=== PATIENT | male | born 1950 | race Caucasian/White ===

== ENCOUNTER 2017-05-28 16:10 | Observation (INO) | payer BC ==
[2017-05-28] VITALS (9 sets, daily range): BP systolic 151–246; BP diastolic 69–130; PULSE 79–96; RESP 16–24; TEMP 97.8; O2SAT 98–100
[~2017-05-28] VITALS: Ht 182.9 cm; Wt 150.0 kg
[~2017-05-28 16:10] MED LIST: CARV3.125 PO; COZA25TA PO; GLYB2.5T3 PO; LIPI20TA PO; METF500T PO
[2017-05-28] MEDS ORDERED: hydrALAZINE HCL 20 MG/ML VIAL IV PUSH ONE (18:45)
--- NOTE | 2017-05-28 18:56 | PD ---
HPI Chief Complaint: Abnormal Results Time Seen by Provider: 18:31 Travel History International Travel<30 days: No Contact w/Intl Traveler<30days: No Traveled to known affect area: No History of Present Illness HPI 66yo M with PMH of DM, HTN was sent here after being evaluated at [address] for abnormal EKG. Pt denies any fever, chest pain, sob, n/v, abdominal pain, focal weakness or numbness, headache or visual changes. Pt has not taken blood pressure medication or diabetic medication for at least 4 months because of insurance issues. PFSH Past Medical History High Cholesterol: Yes Diabetes: Yes Patient Takes Glucophage: Yes Hypertension: Yes Tetanus Vaccination: > 5 Years Influenza Vaccination: No Past Surgical History Surgical History: No Previous Surgery Social History Alcohol Use: Yes (OCCAS) Tobacco Use: No Substance Use: No Allergies-Medications (Allergen,Severity, Reaction): Coded Allergies: No Known Allergies (Unverified , 05/28/17) Reported Meds & Prescriptions Reported Meds & Active Scripts Active Glyburide 2.5 Mg Tab 2.5 Mg PO DAILY Take with meals at the same time each day Coreg (Carvedilol) 3.125 Mg Tab 3.125 Mg PO BID Cozaar (Losartan Potassium) 25 Mg Tab 25 Mg PO DAILY Lipitor (Atorvastatin Calcium) 20 Mg Tab 20 Mg PO HS Metformin (Metformin HCl) 500 Mg Tab 500 Mg PO TIDPC With meals Review of Systems Except as stated in HPI: all other systems reviewed are Neg Physical Exam Narrative GENERAL: 66yo M not in distress. SKIN: Focused skin assessment warm/dry. HEAD: Atraumatic. Normocephalic. EYES: Pupils equal and round. No scleral icterus. No injection or drainage. ENT: No nasal bleeding or discharge. Mucous membranes pink and moist. NECK: Trachea midline. No JVD. CARDIOVASCULAR: Regular rate and rhythm. No murmur appreciated. RESPIRATORY: No accessory muscle use. Clear to auscultation. Breath sounds equal bilaterally. GASTROINTESTINAL: Abdomen soft, non-tender, nondistended. No rebound tenderness or guarding. MUSCULOSKELETAL: No obvious deformities. No clubbing. No cyanosis. +Bilateral lower ext edema. NEUROLOGICAL: Awake and alert. No obvious cranial nerve deficits. Motor grossly within normal limits. Normal speech. PSYCHIATRIC: Appropriate mood and affect; insight and judgment normal. Data Data Last Documented VS Vital Signs Date Time Temp Pulse Resp B/P Pulse Ox O2 Delivery O2 Flow Rate FiO2 05/28/17 20:45 85 16 187/100 99 Room Air 05/28/17 16:11 97.8 Orders Electrocardiogram (05/28/17 ) Chest, Single Ap (05/28/17 ) Complete Blood Count With Diff (05/28/17 18:41) Basic Metabolic Panel (Bmp) (05/28/17 18:41) Troponin I (05/28/17 18:41) Hydralazine Inj (Apresoline Inj) (05/28/17 18:45) Aspirin (Aspirin) (05/28/17 21:00) Admit Order (Ed Use Only) (05/28/17 21:03) Labs Laboratory Tests Test 05/28/17 18:45 White Blood Count 7.4 TH/MM3 Red Blood Count 5.15 MIL/MM3 Hemoglobin 16.7 GM/DL Hematocrit 48.4 % Mean Corpuscular Volume 94.0 FL Mean Corpuscular Hemoglobin 32.4 PG Mean Corpuscular Hemoglobin 34.5 % Concent Red Cell Distribution Width 13.9 % Platelet Count 125 TH/MM3 Mean Platelet Volume 11.5 FL Neutrophils (%) (Auto) 65.9 % Lymphocytes (%) (Auto) 25.9 % Monocytes (%) (Auto) 7.2 % Eosinophils (%) (Auto) 0.3 % Basophils (%) (Auto) 0.7 % Neutrophils # (Auto) 4.8 TH/MM3 Lymphocytes # (Auto) 1.9 TH/MM3 Monocytes # (Auto) 0.5 TH/MM3 Eosinophils # (Auto) 0.0 TH/MM3 Basophils # (Auto) 0.0 TH/MM3 CBC Comment DIFF FINAL Differential Comment Sodium Level 136 MEQ/L Potassium Level 3.7 MEQ/L Chloride Level 98 MEQ/L Carbon Dioxide Level 25.9 MEQ/L Anion Gap 12 MEQ/L Blood Urea Nitrogen 12 MG/DL Creatinine 1.00 MG/DL Estimat Glomerular Filtration 75 ML/MIN Rate Random Glucose 302 MG/DL Calcium Level 8.7 MG/DL Troponin I 0.06 NG/ML MDM Medical Decision Making Medical Screen Exam Complete: Yes Emergency Medical Condition: Yes Interpretation(s) EKG: NSR 75bpm. RBBB. TWI V3, III, aVF. Differential Diagnosis Hypertensive emergency vs. end organ damage vs. uncontrolled diabetes Narrative Course 66yo M with left scapula pain and RBBB on EKG sent here for work up of possible atypical ACS. Pt's blood pressure was markedly elevated so hydralazine 10mg IV given. Pt seen at the end of my shift and sign out to next physician for follow up labs, CXR and reevaluate. Diagnosis Primary Impression: Hypertensive urgency Scripts Aspirin 81 Mg Chew81 Mg CHEW DAILY #30 TAB Ref 0 Prov:Jerald Hsu MD R2 05/29/17 Ania Hsu DO May 28, 2017 18:56 Ania Hsu DO May 28, 2017 18:56
--- NOTE | 2017-05-28 19:24 | RADRPT ---
EXAM DATE/TIME: 05/28/2017 18:56 [facility] COMPARISON: No previous studies available for comparison. INDICATIONS : Left shoulder pain MEDICAL HISTORY : Hypertension. Diabetes mellitus type II. SURGICAL HISTORY : None. ENCOUNTER: Initial ACUITY: 1 day PAIN SCORE: 6/10 LOCATION: Left scapula FINDINGS: Cardiomegaly. Clear lungs. Osseous structures are intact. CONCLUSION: No acute disease. Nj Hansen MD on May 28, 2017 at 19:22 Board Certified Radiologist. This report was verified electronically.
[2017-05-28 19:36] LABS: AUTOMATED NEUTROPHIL # 4.8 TH/MM3 (1.8-7.7); BASOPHIL % 0.7 % (0.0-2.0); EOSINOPHIL % 0.3 % (0.0-4.0); HEMATOCRIT 48.4 % (39.0-51.0); HEMO FLAGS DIFF FINAL; LYMPH % 25.9 % (9.0-44.0); LYMPHOCYTE # 1.9 TH/MM3 (1.0-4.8); MEAN CORPUSCULAR HEMOGLOBIN 32.4 PG (27.0-34.0); MEAN CORPUSCULAR HGB CONC 34.5 % (32.0-36.0); MONO % 7.2 % (0.0-8.0); NEUT % 65.9 % (16.0-70.0); PLATELET COUNT 125 TH/MM3 (150-450); RED BLOOD COUNT 5.15 MIL/MM3 (4.50-5.90); RED CELL DISTRIBUTION WIDTH 13.9 % (11.6-17.2); WHITE BLOOD COUNT 7.4 TH/MM3 (4.0-11.0)
[2017-05-28 19:39] LABS: BICARBONATE 25.9 MEQ/L (21.0-32.0); POTASSIUM 3.7 MEQ/L (3.5-5.1)
--- NOTE | 2017-05-28 20:52 | PD ---
Physical Exam Date Seen by Provider: May 28, 2017 Data Data Last Documented VS Vital Signs Date Time Temp Pulse Resp B/P Pulse Ox O2 Delivery O2 Flow Rate FiO2 05/28/17 20:45 85 16 187/100 99 Room Air 05/28/17 16:11 97.8 Orders Electrocardiogram (05/28/17 ) Chest, Single Ap (05/28/17 ) Complete Blood Count With Diff (05/28/17 18:41) Basic Metabolic Panel (Bmp) (05/28/17 18:41) Troponin I (05/28/17 18:41) Hydralazine Inj (Apresoline Inj) (05/28/17 18:45) Aspirin (Aspirin) (05/28/17 21:00) Labs Laboratory Tests Test 05/28/17 18:45 White Blood Count 7.4 TH/MM3 Red Blood Count 5.15 MIL/MM3 Hemoglobin 16.7 GM/DL Hematocrit 48.4 % Mean Corpuscular Volume 94.0 FL Mean Corpuscular Hemoglobin 32.4 PG Mean Corpuscular Hemoglobin 34.5 % Concent Red Cell Distribution Width 13.9 % Platelet Count 125 TH/MM3 Mean Platelet Volume 11.5 FL Neutrophils (%) (Auto) 65.9 % Lymphocytes (%) (Auto) 25.9 % Monocytes (%) (Auto) 7.2 % Eosinophils (%) (Auto) 0.3 % Basophils (%) (Auto) 0.7 % Neutrophils # (Auto) 4.8 TH/MM3 Lymphocytes # (Auto) 1.9 TH/MM3 Monocytes # (Auto) 0.5 TH/MM3 Eosinophils # (Auto) 0.0 TH/MM3 Basophils # (Auto) 0.0 TH/MM3 CBC Comment DIFF FINAL Differential Comment Sodium Level 136 MEQ/L Potassium Level 3.7 MEQ/L Chloride Level 98 MEQ/L Carbon Dioxide Level 25.9 MEQ/L Anion Gap 12 MEQ/L Blood Urea Nitrogen 12 MG/DL Creatinine 1.00 MG/DL Estimat Glomerular Filtration 75 ML/MIN Rate Random Glucose 302 MG/DL Calcium Level 8.7 MG/DL Troponin I 0.06 NG/ML [facility] Medical Record Reviewed: Yes Supervised Visit with ROGELIO: No Interpretation(s) Vital Signs Date Time Temp Pulse Resp B/P Pulse Ox O2 Delivery O2 Flow Rate FiO2 05/28/17 20:15 96 16 191/103 99 Room Air 05/28/17 19:45 81 16 197/97 99 Room Air 05/28/17 19:20 79 16 201/95 99 Room Air 05/28/17 18:37 82 18 224/118 100 Room Air 05/28/17 18:31 84 18 97 Room Air 05/28/17 16:11 97.8 84 24 246/130 98 Room Air Laboratory Tests Test 05/28/17 18:45 White Blood Count 7.4 TH/MM3 (4.0-11.0) Red Blood Count 5.15 MIL/MM3 (4.50-5.90) Hemoglobin 16.7 GM/DL (13.0-17.0) Hematocrit 48.4 % (39.0-51.0) Mean Corpuscular Volume 94.0 FL (80.0-100.0) Mean Corpuscular Hemoglobin 32.4 PG (27.0-34.0) Mean Corpuscular Hemoglobin 34.5 % Concent (32.0-36.0) Red Cell Distribution Width 13.9 % (11.6-17.2) Platelet Count 125 TH/MM3 (150-450) Mean Platelet Volume 11.5 FL (7.0-11.0) Neutrophils (%) (Auto) 65.9 % (16.0-70.0) Lymphocytes (%) (Auto) 25.9 % (9.0-44.0) Monocytes (%) (Auto) 7.2 % (0.0-8.0) Eosinophils (%) (Auto) 0.3 % (0.0-4.0) Basophils (%) (Auto) 0.7 % (0.0-2.0) Neutrophils # (Auto) 4.8 TH/MM3 (1.8-7.7) Lymphocytes # (Auto) 1.9 TH/MM3 (1.0-4.8) Monocytes # (Auto) 0.5 TH/MM3 (0-0.9) Eosinophils # (Auto) 0.0 TH/MM3 (0-0.4) Basophils # (Auto) 0.0 TH/MM3 (0-0.2) CBC Comment DIFF FINAL Differential Comment Sodium Level 136 MEQ/L (136-145) Potassium Level 3.7 MEQ/L (3.5-5.1) Chloride Level 98 MEQ/L (98-107) Carbon Dioxide Level 25.9 MEQ/L (21.0-32.0) Anion Gap 12 MEQ/L (5-15) Blood Urea Nitrogen 12 MG/DL (7-18) Creatinine 1.00 MG/DL (0.60-1.30) Estimat Glomerular Filtration 75 ML/MIN (>89) Rate Random Glucose 302 MG/DL (74-106) Calcium Level 8.7 MG/DL (8.5-10.1) Troponin I 0.06 NG/ML (0.02-0.05) Differential Diagnosis Differential includes accelerated hypertension, hyperglycemia, ACS, arrhythmia, electrolyte abnormality Narrative Course Patient signed out to me by Dr. Hsu and change of shift. Patient pending Lab work Patient is a 66-year-old male who was sent to the emergency room by Dr. Hsu for evaluation of accelerated hypertension and abnormal EKG. Patient reports that he recently moved to [place] in August, reports that he has not been able to fill any of his scripts for his hypertension, hyperlipidemia and diabetes. Patient reports that for the past 4-5 months, he has not taken any of his medications for these chronic medical problems. Patient did follow-up with Dr. Hsu today, he was restarted in all his medications but was found to have high blood pressure with a blood pressure of 224/118 and an abnormal EKG with a right bundle branch block. Patient reports that he did not take his blood pressure medications today, reports that his medications are waiting at [facility] for refill. Patient at this time. Denies any headaches or chest pain, denies lightheadedness or dizziness. Patient's blood pressure was 224/118 initially, he was given 10 mg of IV hydralazine and blood pressure now 183/93. Labs reviewed, patient with a troponin 0.06. Patient does have a right bundle-branch block on EKG, there are no previous EKGs. Plan to admit for abnormal troponin as well as for hypertensive urgency. Elevated troponin most likely from hypertensive urgency. Case reviewed with FP residents who accepts patient to observation on behalf of Dr. Pfeiffer Diagnosis Primary Impression: Troponin level elevated Additional Impression: Hypertensive urgency Admitting Information Admitting Physician Requests: Observation Lea Guerra DO May 28, 2017 20:52
[2017-05-28] MEDS ORDERED: ASPIRIN 325 MG TAB PO ONE (21:00)
--- NOTE | 2017-05-28 21:55 | HHI.HP ---
[facility] Service Family Medicine Primary Care Physician Jerald Hsu MD Admission Diagnosis Elevated troponin, Hypertensive urgnecy Diagnoses: International Travel<30 Days: No Contact w/Intl Traveler<30days: No Known Affected Area: No History of Present Illness 66 year old male presented to the [facility] today to establish care with new physician, Dr. Jarrod Hsu. He has a history of hypertension, obesity , hyperlipidemia, and diabetes type II. He He had some intermittent left back/ scapular pain for the past 4 weeks that is non-exertional. He was sent to the ER by Dr. Hsu for hypertensive urgency and RBBB seen on EKG. His blood pressure upon arrival to the ER is 246/130. He has no headaches, shortness of breath, chest pain, abdominal pain, nausea, vomiting, diarrhea, diaphoresis, new edema, blurry vision, or neurological deficits. He states that he feels completely asymptomatic at the time. He was on metformin, Cozaar, Lipitor, Coreg , and glyburide but has not taken them for the last few months due to insurance problems. Specifically, he moved here from [place] and had a lapse in coverage for a period of time. He now has insurance coverage in [place]. He does not know his last A1C and reports no significant complications from diabetes. Review of Systems Constitutional: DENIES: Fatigue, Fever, Weight gain, Weight loss, Chills, Change in appetite Endocrine: DENIES: Polydipsia, Polyuria, Polyphagia Eyes: DENIES: Blurred vision, Eye pain, Double Vision Ears, nose, mouth, throat: DENIES: Throat pain, Ear Pain Respiratory: DENIES: Cough, Wheezing, Sputum production, Shortness of breath Cardiovascular: DENIES: Chest pain, Palpitations, Syncope, Dyspnea on Exertion , Lower Extremity Edema, Orthopnea Gastrointestinal: DENIES: Abdominal pain, Black stools, Bloody stools, Constipation, Diarrhea, Nausea, Vomiting Genitourinary: DENIES: Urinary frequency, Urgency, Hematuria, Dysuria, Nocturia Musculoskeletal: DENIES: Muscle aches, Joint Swelling, Neck pain Integumentary: DENIES: Abnormal pigmentation, Nail changes, Rash Hematologic/lymphatic: DENIES: Lymphadenopathy Immunologic/allergic: DENIES: Urticaria Neurologic: DENIES: Abnormal gait, Headache, Localized weakness, Paresthesias, Seizures, Tremor, Poor Balance Psychiatric: DENIES: Anxiety, Depression, Hallucinations, Agitation Past Family Social History Past Medical History Diabetes type II Hypertension Hyperlipidemia Obesity Past Surgical History None Reported Medications Reported Meds & Active Scripts Active Glyburide 2.5 Mg Tab 2.5 Mg PO DAILY Take with meals at the same time each day Coreg (Carvedilol) 3.125 Mg Tab 3.125 Mg PO BID Cozaar (Losartan Potassium) 25 Mg Tab 25 Mg PO DAILY Lipitor (Atorvastatin Calcium) 20 Mg Tab 20 Mg PO HS Metformin (Metformin HCl) 500 Mg Tab 500 Mg PO TIDPC With meals Allergies: Coded Allergies: No Known Allergies (Unverified , 05/28/17) Active Ordered Medications Inpatient Medications Aspirin (Aspirin) 325 mg ONCE ONCE PO Last administered on 05/28/17 21:01; Start 05/28/17 at 21:00; Stop 05/28/17 at 21:01; Status DC Atorvastatin Calcium (Lipitor) 20 mg HS PO ; Start 05/29/17 at 21:00 Carvedilol (Coreg) 3.125 mg BID PO ; Start 05/29/17 at 09:00 Enoxaparin Sodium (Lovenox Inj) 40 mg Q24H SQ ; Start 05/28/17 at 23:00 Hydralazine HCl (Apresoline Inj) 10 mg Q6H PRN IV SEE LABEL COMMENTS Last administered on 05/28/17 22:21; Start 05/28/17 at 22:15 Losartan Potassium (Cozaar) 25 mg DAILY PO ; Start 05/29/17 at 09:00 Family History Father: age 72 of [place], was obese, stroke Mother: age 54, cancer unspecified Siblings: one sister, cancer unspecified 2 daughters and one son, healthy Social History never smoker drinks 3 to 4 beers per day, no history of withdrawals or seizures no drug use lives with 5 children grown Physical Exam Vital Signs Vital Signs Date Time Temp Pulse Resp B/P Pulse Ox O2 Delivery O2 Flow Rate FiO2 05/28/17 20:45 85 16 187/100 99 Room Air 05/28/17 20:15 96 16 191/103 99 Room Air 05/28/17 19:45 81 16 197/97 99 Room Air 05/28/17 19:20 79 16 201/95 99 Room Air 05/28/17 18:37 82 18 224/118 100 Room Air 05/28/17 18:31 84 18 97 Room Air 05/28/17 16:11 97.8 84 24 246/130 98 Room Air Physical Exam GENERAL: Resting in bed, no distress, sitting up SKIN: Clear, no rashes, chronic venous dermatitis in lower extremities HEAD: Atraumatic. Normocephalic. No temporal or scalp tenderness. EYES: Pupils equal round and reactive. Extraocular motions intact. No scleral icterus. No injection or drainage. Retinal arteries appear normal. ENT: Nose without bleeding, purulent drainage or septal hematoma. Throat without erythema, tonsillar hypertrophy or exudate. Uvula midline. Airway patent. NECK: Trachea midline. No JVD or lymphadenopathy. Supple, nontender, no meningeal signs. CARDIOVASCULAR: Regular rate and rhythm without murmurs, gallops, or rubs. RESPIRATORY: Clear to auscultation. Breath sounds equal bilaterally. No wheezes , rales, or rhonchi. GASTROINTESTINAL: Abdomen soft, non-tender, nondistended. No hepato-splenomegaly , or palpable masses. No guarding. MUSCULOSKELETAL: Trace pedal edema. No joint tenderness, effusion, or edema noted. No calf tenderness. Negative Homans sign bilaterally. NEUROLOGICAL: Awake and alert. Cranial nerves II through XII intact. Motor and sensory grossly within normal limits. Five out of 5 muscle strength in all muscle groups. Normal speech. Laboratory Laboratory Tests Test 05/28/17 18:45 White Blood Count 7.4 Red Blood Count 5.15 Hemoglobin 16.7 Hematocrit 48.4 Mean Corpuscular Volume 94.0 Mean Corpuscular Hemoglobin 32.4 Mean Corpuscular Hemoglobin 34.5 Concent Red Cell Distribution Width 13.9 Platelet Count 125 Mean Platelet Volume 11.5 Neutrophils (%) (Auto) 65.9 Lymphocytes (%) (Auto) 25.9 Monocytes (%) (Auto) 7.2 Eosinophils (%) (Auto) 0.3 Basophils (%) (Auto) 0.7 Neutrophils # (Auto) 4.8 Lymphocytes # (Auto) 1.9 Monocytes # (Auto) 0.5 Eosinophils # (Auto) 0.0 Basophils # (Auto) 0.0 CBC Comment DIFF FINAL Differential Comment Sodium Level 136 Potassium Level 3.7 Chloride Level 98 Carbon Dioxide Level 25.9 Anion Gap 12 Blood Urea Nitrogen 12 Creatinine 1.00 Estimat Glomerular Filtration 75 Rate Random Glucose 302 Calcium Level 8.7 Troponin I 0.06 Result Diagram: 05/28/17 1845 05/28/17 1845 Imaging Last 72 hours Impressions Chest X-Ray 05/28/17 0000 Signed Impressions: Service Date/Time: May 18:56 - CONCLUSION: No acute disease. Nj Hansen MD Septic Shock Reassessment Heart: Regular rate and rhythm Lungs: Clear Skin: Warm Capillary Refill: <2 seconds Assessment and Plan Assessment and Plan 66 year old male presents with hypertensive urgency and new RBBB Code Status FULL CODE Discussed Condition With Seen and discussed with Dr. Montiel Problem List: (1) Hypertensive urgency Status: Acute Plan: Significantly elevated blood pressure up to 246/130. BP 180's/100's while in room. Creatinine 1.0, GFR slightly decreased to 75. Troponin elevated to 0.06 initially. RBBB on EKG. Neurological exam benign. - Hydralazine 10 mg IV given twice in ED. - Give clonidine PO for blood pressure >180/100 - Resume Coreg 3.125 bid - Resume Losartan 25 mg daily - Trend Troponins and EKG's - Target 25-30% reduction in blood pressure, avoid rapid correction - Rest in quiet room as much as possible - Renal ultrasound to rule out renovascular disease - Check TSH to rule out hyperthyroidism - Could consider further workup for secondary hypertension if not controlled (2) Troponin level elevated Status: Acute Plan: Most likely secondary to elevated blood pressures. No active chest pain currently. No distress. - Trend troponins and EKG's - Cardiac monitoring - Received 325 mg aspirin in ED - Continue atorvastatin 20 mg qHS (3) Right bundle branch block Status: Acute Plan: Right bundle branch block, unclear if new. DDx includes uncontrolled hypertension, PE, cor pulmonale, VT. - cardiac monitoring (4) Diabetes mellitus Status: Chronic Plan: - Low dose sliding scale insulin - Blood glucose checks - Diabetic diet - Additional insulin if needed (5) Hyperlipidemia Status: Chronic Plan: - Continue statin (6) No contraindication to deep vein thrombosis (DVT) prophylaxis Status: Acute Plan: - Lovenox 40 mg daily - SCD's (7) Nutrition, metabolism, and development symptoms Status: Acute Plan: - Diabetic diet - PO fluids Larry Bond MD R2 May 28, 2017 21:55
[2017-05-28] MEDS ORDERED: hydrALAZINE HCL 20 MG/ML VIAL IV PRN (22:15)
[2017-05-28] MEDS ORDERED: ENOXAPARIN SODIUM 40 MG/0.4 ML SYRINGE SQ SCH (23:00)
[2017-05-29] MEDS ORDERED: cloNIDine HCL 0.1 MG TAB PO PRN (00:30)
[2017-05-29 00:32] VITALS: BP 192/87; PULSE 81; RESP 19; TEMP 97.6; O2SAT 98
[2017-05-29 01:50] VITALS: PULSE 103
[2017-05-29 02:22] LABS: CREATINE KINASE 221 U/L (39-308)
[2017-05-29 04:04] VITALS: BP 186/116; PULSE 96; RESP 19; TEMP 98.4; O2SAT 98
[2017-05-29 07:50] LABS: AUTOMATED NEUTROPHIL # 4.3 TH/MM3 (1.8-7.7); BASOPHIL # 0.1 TH/MM3 (0-0.2); BASOPHIL % 1.2 % (0.0-2.0); EOSINOPHIL % 0.2 % (0.0-4.0); HEMATOCRIT 43.7 % (39.0-51.0); HEMO FLAGS DIFF FINAL; LYMPH % 31.3 % (9.0-44.0); LYMPHOCYTE # 2.2 TH/MM3 (1.0-4.8); MEAN CELL VOLUME 94.3 FL (80.0-100.0); MEAN CORPUSCULAR HEMOGLOBIN 32.2 PG (27.0-34.0); MEAN CORPUSCULAR HGB CONC 34.2 % (32.0-36.0); MONO % 5.5 % (0.0-8.0); NEUT % 61.8 % (16.0-70.0); PLATELET COUNT 119 TH/MM3 (150-450); RED BLOOD COUNT 4.63 MIL/MM3 (4.50-5.90); RED CELL DISTRIBUTION WIDTH 14.3 % (11.6-17.2); WHITE BLOOD COUNT 6.9 TH/MM3 (4.0-11.0)
[2017-05-29 08:00] VITALS: BP 182/108; PULSE 84; RESP 18; TEMP 97.2; O2SAT 99
[2017-05-29 08:10] VITALS: PULSE 76
[2017-05-29 08:18] LABS: ANION GAP 10 MEQ/L (5-15); BICARBONATE 25.7 MEQ/L (21.0-32.0); BLOOD UREA NITROGEN 12 MG/DL (7-18); CHLORIDE 101 MEQ/L (98-107); GLOMERULAR FILTRATION RATE 86 ML/MIN (>89); POTASSIUM 3.5 MEQ/L (3.5-5.1); SODIUM (NA) 137 MEQ/L (136-145)
[2017-05-29 08:27] LABS: CREATINE KINASE 199 U/L (39-308); HDL CHOLESTEROL 47.1 MG/DL (40.0-60.0); LDL CHOLESTEROL 149 MG/DL (0-99)
[2017-05-29 08:40] LABS: CKMB 2.8 NG/ML (0.5-3.6)
[2017-05-29] MEDS ORDERED: CARVEDILOL 3.125 MG TAB PO SCH (09:00)
[2017-05-29] MEDS ORDERED: LOSARTAN 25 MG TAB PO SCH (09:00)
[2017-05-29] MEDS ORDERED: ASPI81CH CHEW (09:19)
--- NOTE | 2017-05-29 09:20 | HHI.DCPOC ---
Discharge Care Plan Diagnosis: (1) Hypertensive urgency (2) Troponin level elevated Goals to Promote Your Health * To prevent worsening of your condition and complications * To maintain your health at the optimal level Directions to Meet Your Goals Take your medications as prescribed Follow your dietary instruction Follow activity as directed Keep your appointments as scheduled Take your immunizations and boosters as scheduled If your symptoms worsen call your PCP, if no PCP go to Urgent Care Center or Emergency Room Smoking is Dangerous to Your Health. Avoid second hand smoke Call the 24-hour hour crisis hotline for domestic abuse at Jerald Hsu MD R2 May 29, 2017 09:19
--- NOTE | 2017-05-29 09:25 | HHI.FPPN ---
Subjective Remarks Feels well this morning. Denies chest pain, nausea, vomiting, fever, chills, shortness of breath. Patient states he wants to leave and follow-up with cardiology as an outpatient. (Jerald Hsu MD R2) Objective Vitals Vital Signs Date Time Temp Pulse Resp B/P Pulse Ox O2 Delivery O2 Flow Rate FiO2 05/29/17 08:00 97.2 84 18 182/108 99 05/29/17 04:04 98.4 96 19 186/116 98 05/29/17 01:50 103 05/29/17 00:32 97.6 81 19 192/87 98 05/28/17 23:30 80 16 151/69 98 Room Air 05/28/17 22:38 98 21 05/28/17 22:37 94 20 192/91 99 Room Air 05/28/17 20:45 85 16 187/100 99 Room Air 05/28/17 20:15 96 16 191/103 99 Room Air 05/28/17 19:45 81 16 197/97 99 Room Air 05/28/17 19:20 79 16 201/95 99 Room Air 05/28/17 18:37 82 18 224/118 100 Room Air 05/28/17 18:31 84 18 97 Room Air 05/28/17 16:11 97.8 84 24 246/130 98 Room Air (Jerald Hsu MD R2) Result Diagram: 05/29/17 0652 05/29/17 0652 Objective Remarks GENERAL: Resting in bed, no distress, sitting up SKIN: Clear, no rashes, chronic venous dermatitis in lower extremities HEAD: Atraumatic. Normocephalic. No temporal or scalp tenderness. EYES: Pupils equal round and reactive. Extraocular motions intact. No scleral icterus. No injection or drainage. Retinal arteries appear normal. ENT: Nose without bleeding, purulent drainage or septal hematoma. Throat without erythema, tonsillar hypertrophy or exudate. Uvula midline. Airway patent. NECK: Trachea midline. No JVD or lymphadenopathy. Supple, nontender, no meningeal signs. CARDIOVASCULAR: Regular rate and rhythm without murmurs, gallops, or rubs. RESPIRATORY: Clear to auscultation. Breath sounds equal bilaterally. No wheezes , rales, or rhonchi. GASTROINTESTINAL: Abdomen soft, non-tender, nondistended. No hepato-splenomegaly , or palpable masses. No guarding. MUSCULOSKELETAL: No joint tenderness, effusion, or edema noted. No calf tenderness. Negative Homans sign bilaterally. NEUROLOGICAL: Awake and alert. Cranial nerves II through XII intact. Motor and sensory grossly within normal limits. Five out of 5 muscle strength in all muscle groups. Normal speech. (Jerald Hsu MD R2) A/P Assessment and Plan 66 year old male presents with hypertensive urgency and new RBBB Discharge Planning Discharge today (Jerald Hsu MD R2) Attending Attestation Patient seen and examined. Case reviewed and discussed with the resident team. Agree with plan of care as discussed with me and documented in the resident note. he feels very well and has been asymptomatic and wishes to have follow up as an outpatient. (Nancy Young MD) Problem List: (1) Hypertensive urgency Status: Acute Plan: Improved Recommended cardiology consult while inpatient, however the patient is adamant about leaving this morning and following with cardiology as an outpatient. Cardiology consult as an outpatient placed Discharge today Recommend continuing patient's antihypertensives at home Follow-up with me in one week (2) Troponin level elevated Status: Acute Plan: Most likely secondary to elevated blood pressures. No active chest pain currently. No distress. Outpatient cardiology consult (3) Right bundle branch block Status: Acute Plan: See above (4) Diabetes mellitus Status: Chronic Plan: Continue diabetic medications (5) Hyperlipidemia Status: Chronic Plan: - Continue statin (6) No contraindication to deep vein thrombosis (DVT) prophylaxis Status: Acute Plan: - Lovenox 40 mg daily - SCD's (7) Nutrition, metabolism, and development symptoms Status: Acute Plan: - Diabetic diet - PO fluids (Jerald Hsu MD R2) Jerald Hsu MD R2 May 29, 2017 09:25 Nancy Young MD Jun 03, 2017 14:36
--- NOTE | 2017-05-29 09:58 | RADRPT ---
EXAM DATE/TIME: 05/29/2017 09:10 [facility] COMPARISON: No previous studies available for comparison. INDICATIONS : Hypertensive crisis. MEDICAL HISTORY : Hypercholesterolemia. Hypertension. Diabetic. SURGICAL HISTORY : None. ENCOUNTER: Initial ACUITY: 1 day PAIN SCORE: 0/10 LOCATION: Bilateral flank MEASUREMENTS: RIGHT KIDNEY: 13.6 x 6.9 x 5.5 cm LEFT KIDNEY: 11.6 x 5.3 x 6.2 cm FINDINGS: RIGHT KIDNEY: Renal cortex is normal in thickness and echotexture. No hydronephrosis or mass. 3 simple cysts the largest in the mid kidney measuring 5.6 cm. 2 in the lower pole measuring 2.4 and 1.8 cm. 5 mm echoge vicky foci in the upper pole could be nonobstructing calculus. LEFT KIDNEY: Renal cortex is normal in thickness and echotexture. No hydronephrosis, stone, or mass. BLADDER: Within normal limits given the degree of distension. CONCLUSION: 1. Multiple simple cysts right kidney. 2. Echogenic focus right kidney could be a 5 mm nonobstructing calculus. Edis Herrera MD on May 29, 2017 at 9:55 Board Certified Radiologist. This report was verified electronically.
[2017-05-29 10:20] VITALS: BP 162/80
--- NOTE | 2017-05-29 14:52 | EKG ---
Date Performed: 05/28/2017 Time Performed: 16:26:04 PTAGE: 66 years EKG: Sinus rhythm RIGHT BUNDLE BRANCH BLOCK ABNORMAL ECG NO PREVIOUS TRACING DOCTOR: Eldon Johnson Interpretating Date/Time 05/29/2017 14:50:17
[2017-05-29] MEDS ORDERED: ATORVASTATIN 20 MG TAB PO SCH (21:00)
--- NOTE | 2017-06-01 13:46 | EKG ---
Date Performed: 05/29/2017 Time Performed: 00:25:34 PTAGE: 66 years EKG: Sinus rhythm POSSIBLE LEFT ATRIAL ENLARGEMENT RIGHT BUNDLE BRANCH BLOCK Consider anteroseptal ischemia ABNORMAL E CG PREVIOUS TRACING : 05/28/2017 22.23 DOCTOR: Frederic Gore Interpretating Date/Time 06/01/2017 13:45:54
--- NOTE | 2017-06-01 13:46 | EKG ---
Date Performed: 05/28/2017 Time Performed: 22:23:49 PTAGE: 66 years EKG: Sinus rhythm RIGHT BUNDLE BRANCH BLOCK Consider anteroseptal ischemia ABNORMAL ECG PREVIOUS TRACING : 05/28/2017 16.26 DOCTOR: Frederic Gore Interpretating Date/Time 06/01/2017 13:45:38
--- NOTE | 2017-06-01 13:48 | EKG ---
Date Performed: 05/29/2017 Time Performed: 06:18:00 PTAGE: 66 years EKG: Sinus rhythm INTRAVENTRICULAR CONDUCTION DELAY ABNORMAL ECG PREVIOUS TRACING : 05/28/2017 22.23 Compared to previous EKG, ST depression in the anteroseptal leads has improved. DOCTOR: Frederic Gore Interpretating Date/Time 06/01/2017 13:46:41
== END 2017-05-29 11:23 | disposition home or self-care (01) ==
LOC: NEPC 16:10 → NEDA 21:05 → NEPHCDU 05-29 00:17
PROVIDERS: ADMIT Family Medicine; ATTEND Family Medicine
DX: I16.0 Hypertensive urgency (principal); R74.8 Abnormal levels of other serum enzymes; I45.10 Unspecified right bundle-branch block; R94.31 Abnormal electrocardiogram [ECG] [EKG]; I10 Essential (primary) hypertension; E78.5 Hyperlipidemia, unspecified; E78.00 Pure hypercholesterolemia, unspecified; E11.9 Type 2 diabetes mellitus without complications; M25.512 Pain in left shoulder; N28.1 Cyst of kidney, acquired; M54.9 Dorsalgia, unspecified; E66.9 Obesity, unspecified; Z79.899 Other long term (current) drug therapy; Z79.84 Long term (current) use of oral hypoglycemic drugs
CPT/HCPCS: 71010; 76775; 80048; 80061; 82550; 82552; 84443; 84484; 85025; 93005; 96374; 99285; G0378; J0360; J1650

== ENCOUNTER 2017-07-01 11:34 | Day surgery (SDC) | payer BC ==
[~2017-07-01] VITALS: Ht 182.9 cm; Wt 144.7 kg
[~2017-07-01 11:34] MED LIST changes: +ASPI81CH CHEW
[2017-07-01] MEDS ORDERED: IOHEXOL 350 MG/ML 100 ML BTL (for Cath Lab) OTHER ONE (11:35)
[2017-07-01 12:13] VITALS: BP 166/100; PULSE 70; RESP 18; TEMP 98; O2SAT 97
[2017-07-01 12:29] LABS: AUTOMATED NEUTROPHIL # 4.5 TH/MM3 (1.8-7.7); BASOPHIL # 0.1 TH/MM3 (0-0.2); BASOPHIL % 0.9 % (0.0-2.0); EOSINOPHIL # 0.1 TH/MM3 (0-0.4); HEMATOCRIT 45.4 % (39.0-51.0); HEMO FLAGS DIFF FINAL; LYMPH % 24.8 % (9.0-44.0); LYMPHOCYTE # 1.7 TH/MM3 (1.0-4.8); MEAN CELL VOLUME 94.6 FL (80.0-100.0); MEAN CORPUSCULAR HEMOGLOBIN 31.7 PG (27.0-34.0); MEAN CORPUSCULAR HGB CONC 33.5 % (32.0-36.0); MONO % 7.8 % (0.0-8.0); NEUT % 64.5 % (16.0-70.0); PLATELET COUNT 155 TH/MM3 (150-450); RED CELL DISTRIBUTION WIDTH 13.4 % (11.6-17.2)
[2017-07-01 12:44] LABS: APTT (PATIENT) 26.8 SEC (24.3-30.1); PROTHROMBIN TIME - PATIENT 10.8 SEC (9.8-11.6)
[2017-07-01 12:55] LABS: BICARBONATE 27.2 MEQ/L (21.0-32.0); POTASSIUM 4.1 MEQ/L (3.5-5.1)
[2017-07-01] MEDS ORDERED: HEPARIN-NS/PF INJ 1,000 ML ONE (16:40)
[2017-07-01] MEDS ORDERED: MIDAZOLAM HCL 2 MG/2 ML VIAL ONE ×2 (16:40→17:03)
[2017-07-01] MEDS ORDERED: SODIUM CHLOR 0.9% 1000 ML INJ 1,000 ML IV SCH (17:45)
--- NOTE | 2017-07-01 17:48 | CATHPROC ---
[facility] HIS Report Study Information Study Number Admission Scheduled Start Study Start [id number] Jul 01 2017 11:34AM 07/01/2017 Jul 01 2017 4:32PM [place] Cardiac Catheterization Admit Source Facility Department Other [facility] - Railroad Operating Engineer Physician and Clinical Staff Initial Dorian Vega Data Power Consultant Conrad RN, Joao Data Power ConsultantNikhil Ferrell,MARGIE Recorder Virgie Caban,(R) Recorder Asim Calderon RCIS(BS) Scrub Lauri Morton RCIS(BS) Procedures Performed Procedure Location (Site) Vessel Name Angiogram LV LV Ventricle Coronary Angiograms LCA Left Coronary Coronary Angiograms RCA Right Coronary L Heart Cath Equipment Time Metal Box Maker Description Size Mfg Part Number Used/Scraped TRANSDUCER, TRUWAVE [id number] 17:09 Vurb * Used W/STOCKCOCK *[id number] 17:26 Appwapp MEDICAL VASCADE, FR5 CLOSURE SYSTEM FR 5 Used *[id number] [id number] *[id number] [id number] *[id number] [id number] *[id number] 17:09 MEDLINE INDUSTRIES PACK, CCL CUSTOM * Used *[id number] 17:09 S[employer] PACER PEN, SKIN DUAL W/ RULER * Used *[id number] 17:09 iRise WIRE, 3MMJ .035 180CM 180CM Used *[id number] PROBE COVER, STERILE [id number] 17:09 [employer]oxmedia * Used ULTRASOUND W/ GEL *[id number] 17:09 NAMIC MANIFOLD, 4 PORT * Used *[id number] 17:09 NAMIC TUBING, HIGH PRESSURE 48" 48" Used *[id number] 17:09 NYCOMED OMNIPAQUE, 350 MG, 150ML 150ML [id number] Used [id number] 17:09 SECU4 BLANKET,WARM AIR CCL * Used *[id number] 17:09 Goods Platform MEDICAL SHEATH, FR5 TERUMO (10CM) FR 5 Used *[id number] History: Current Medications Medication Dosage/Unit Route Frequency Last Date/Time Taken ASA Glucophage COZAAR LIPITOR Glyburide History: Allergies Allergy Reaction No Known Allergies History: Risk Factors Family History of Hypertension Dyslipidemia Previous NV Previous Heart Failure Premature CAD Yes Yes No No No Prior Valve Prior PCI Prior CABG Surgery No No No Cerebrovascular Peripheral Artery Chronic Lung On Dialysis Diabetes Diabetes Therapy Disease Disease Disease No No No No Yes Oral History: Stress Tests Stress or Imaging Studies Performed Yes Standard Exercise Stress Test No Stress Echo No Stress Test SPECT Stress Test SPECT Result Stress Test SPECT Ischemia Risk/Extent Yes Positive Intermediate Cardiac CTA Coronary Calcium Score No No History: Other Current Smoker No Labs Hgb (g/dl) Hct (%) Platelets (thousands) 11.60-17.00 35.00-51.00 150.00-450.00 15.2 45.4 155 Glucose (mg/dl) BUN (mg/dl) Creatinine (mg/dl) BUN:Creatinine (1:x) 74.00-106.00 7.00-18.00 0.50-1.30 10.00-20.00 182 15 1.0 15 Na (meq/l) K (meq/l) 136.00-145.00 3.50-5.10 138 4.1 INR (PTT:PT) 0.90-1.10 1 CPK-MB (ng/ML) 0.50-3.60 Not Drawn Medication Medication Total Dose (Bolus/Oral) Medication Total Dosage/Unit 1% XYLOCAINE 20 mL FENTANYL 50 mcg VERSED 3 mg Medications (Bolus/Oral) Medication Time Given Dosage/Unit Administered By Reason VERSED 07/01/2017 5:00:00 PM 2 mg Ferlitto, Nikhil 2 mg VERSED given in lab by Nikhil Cohen RN in Left Antecubital via Peripheral IV. Ordered by Dorian Baird. FENTANYL 07/01/2017 5:01:13 PM 50 mcg Ferlimichaelo, Nikhil 50 mcg FENTANYL given in lab by Nikhil Cohen RN in Left Antecubital via Peripheral IV. Ordered by Dorian Norman. VERSED 07/01/2017 5:06:25 PM 1 mg Ferlitto, Nikhil 1 mg VERSED given in lab by Nikhil Cohen RN in Left Antecubital via Peripheral IV. Ordered by Dorian Baird. 1% XYLOCAINE 07/01/2017 5:06:42 PM 20 mL Dorian Norman 20 mL 1% XYLOCAINE given in lab by Dorian Norman in Right Groin via Subcutaneous. Ordered by Dorian Cordero. Initial Case Assessment Cardiovascular HR Rhythm NIBP Chest Pain 66 RBBB 195/114 0 Edema Present Skin color Skin None Normal Warm Circulatory - Right Pulses Dorsalis Pedis Femoral 1 1 Scale (0,1,2,3,4,d) Circulatory - Left Pulses Dorsalis Pedis Femoral 1 1 Scale (0,1,2,3,4,d) Neurological State Oriented to time-place- Alert Moves all extremities person Respiration - General Respiration Rate SpO2 (%) (B/min) 12 99 Final Case Assessment Cardiovascular HR Rhythm NIBP Chest Pain 71 RBBB 158/105 0 Edema Present Skin color Skin None Normal Warm Circulatory - Right Pulses Dorsalis Pedis Femoral 1 1 Scale (0,1,2,3,4,d) Circulatory - Left Pulses Dorsalis Pedis Femoral 1 1 Scale (0,1,2,3,4,d) Neurological State Oriented to time-place- Alert Moves all extremities person Respiration - General Respiration Rate SpO2 (%) (B/min) 20 97 Chronological Log Time Study Chronological Log 16:30:54 Patient arrived via Bed. 16:31:55 Patient Name, D.O.B, / Armband Verified By R.N. 16:31:56 Consent signed by the physician and the patient and verified by the Railroad Operating Engineer staff. 16:31:57 Pre-op and post- op instructions given; patient acknowledges understanding of instructions. 16:31:58 Verbal Stimulation=2 Physical Stimulation=2 Airway=2 Respiration=2 TOTAL=8. (0=absent, 1=li mited, 2=present) 16:33:11 Presedation assessment performed by Railroad Operating Engineer RN. 16:33:24 Patient has been NPO for More than 6Hrs. 16:33:24 Skin Breakdown- 16:33:25 Patient Warmer Placed on the Table. 16:33:26 Jessika Prominences Protected 16:33:29 A # 20 IV was noted in the Antecubital (left). Grade = 0 16:33:30 History and physical on the chart or being dictated. Assessment: Initial Case, HR=66 BPM, Rhythm=RBBB, UXMZ=732/114 mmhg, Chest Pain=0, Edema=None, Color=Normal, Skin = Warm Right Pulses: Jesus Ped=1, Femoral=1 16:33:52 Left Pulses: Jesus Ped=1, Femoral=1 Neurological: State=Alert, Ox3, ELLIS Respiration: Resp=12 B/min, SpO2=99 % Vitals capture started with the following parameters, Patient=Adult, Interval=5 min, Initial Pr dghfqw=164 mmHg, 16:38:54 Deflation Rate=5 mmHg, Cuff placed on Right Arm 16:40:07 HR=78 bpm, IAEN=991/116 mmhg, ZwR0=023.0 %, Resp=20 B/min, Pain=0, Samantha=10, Mauro=2 16:44:36 HR=66 bpm, ZKLY=564/112 mmhg, SpO2=99.0 %, Resp=8 B/min 16:46:44 Bilateral groins prepped with 2% chlorhexidine, and draped after a 3 min. waiting time. 16:49:39 HR=73 bpm, BFEC=620/114 mmhg, SpO2=99.0 %, Resp=23 B/min, Pain=0, Samantha=10, Mauro=2 16:52:22 Pressure channel 1 zeroed. 16:52:33 paged 16:54:28 Reference ECG taken 16:54:38 HR=67 bpm, OTVQ=134/106 mmhg, SpO2=99.0 %, Resp=19 B/min, Pain=0, Samantha=10, Mauro=2 16:58:41 MD arrived. 16:59:39 HR=55 bpm, FAWG=258/102 mmhg, SpO2=99.0 %, Resp=18 B/min, Pain=0, Samantha=10, Mauro=2 17:00:00 2 mg VERSED given in lab by Nikhil Cohen, RN in Left Antecubital via Peripheral IV. Order ed by Dorian Norman. 17:01:13 50 mcg FENTANYL given in lab by Nikhil Cohen, MARGIE in Left Antecubital via Peripheral IV. O rdered by Dorian Norman. 17:04:32 HR=68 bpm, FZIQ=924/100 mmhg, SpO2=95.0 %, Resp=23 B/min, Pain=0, Samantha=10, Mauro=2 Time Out. Correct patient, correct procedure,correct physician, power injector loaded with cont rast with surgical team 17:06:01 present. Time Out Concurred by , individual staff in procedure 17:06:25 1 mg VERSED given in lab by Nikhil Cohen RN in Left Antecubital via Peripheral IV. Order ed by Dorian Norman. 17:06:32 Case Start 17:06:42 20 mL 1% XYLOCAINE given in lab by Dorian Norman in Right Groin via Subcutaneous. Ordered by Dorian Norman. 17:08:10 Access site was Right Femoral Artery. 17:08:22 A SHEATH, FR5 TERUMO (10CM) FR 5 was advanced into the Fem Art (right) using the Percut[place]o us technique. A PIGTAIL ANG. INFINITI CATHETER FR 5 was advanced over a wire. OMNIPAQUE, 350 MG, 150ML 150ML was used 17:09:15 for injections. 17:09:35 HR=68 bpm, PFKJ=615/93 mmhg, SpO2=95.0 %, Resp=32 B/min, Pain=0, Samantha=10, Mauro=2 17:09:52 Wire removed Recorded Pressure: LV, HR=70, Condition=Condition 1 17:10:20 (Left Ventricle) LV 141/1/8 17:11:08 The LV was injected at 10 cc/sec for a total of 30. OMNIPAQUE, 350 MG, 150ML 150ML used. Recorded Pressure: LV, Ao, HR=69, Condition=Condition 1 17:12:03 (Left Ventricle) LV 145/2/5, (Aorta) Ao 151/84/111 17:12:40 Catheter was removed A JL 4.0 INFINITI CATHETER FR 5 was advanced over a wire. OMNIPAQUE, 350 MG, 150ML 150ML was us ed for 17:13:04 injections. Recorded Pressure: Ao, HR=69, Condition=Condition 1 17:13:59 (Aorta) Ao 148/88/114 17:14:36 HR=67 bpm, MRXW=858/99 mmhg, SpO2=95.0 %, Resp=24 B/min, Pain=0, Samantha=10, Mauro=2 17:14:47 The LCA was injected and visualized at various angles. OMNIPAQUE, 350 MG, 150ML 150ML used . 17:16:10 Catheter was removed A AR MOD INFINITI CATHETER FR 5 was advanced over a wire. OMNIPAQUE, 350 MG, 150ML 150ML was us ed for 17:16:14 injections. 17:16:38 Wire removed 17:17:08 The RCA was injected and visualized at various angles. OMNIPAQUE, 350 MG, 150ML 150ML used . 17:18:13 Catheter was removed 17:19:37 HR=68 bpm, PMJJ=379/91 mmhg, SpO2=95.0 %, Resp=22 B/min, Pain=0, Samantha=10, Mauro=2 17:24:29 VASCADE, FR5 CLOSURE SYSTEM FR 5 placement in the Fem Art (right) 17:24:38 HR=81 bpm, DMOC=767/105 mmhg, SpO2=95.0 %, Resp=15 B/min, Pain=0, Samantha=10, Mauro=2 17:25:33 Case End 17:25:36 Sterile dressing applied to site 17:25:37 No case complications noted. 17:25:42 Cine recording checked. 17:25:45 Bedside Report will be given. 17:25:51 Contrast Scanned 17:25:54 A Left Heart Cath was performed. 17:25:56 [facility] Assessment: Final Case, HR=71 BPM, Rhythm=RBBB, WZPR=044/105 mmhg, Chest Pain=0, Edema=None, Color=Normal, Skin = Warm Right Pulses: Jesus Ped=1, Femoral=1 17:26:13 Left Pulses: Jesus Ped=1, Femoral=1 Neurological: State=Alert, Ox3, ELLIS Respiration: Resp=20 B/min, SpO2=97 % 17:31:37 Vitals capture stopped. End Study - Contrast Media Used In Study Contrast Total Opened (mL) Total Used (mL) Total Wasted (mL) Omnipaque 80 80 0 End Study - Maximum Contrast Load Max Contrast Load (mL) 723.4 End Study - Radiation Exposure Fluoro Time (minutes) 1.7 End Study - Patient Disposition Complications Transferred To Interventional Outcome No Telemetry Bed No attempt made
[2017-07-01 19:40] LABS: HDL CHOLESTEROL 46.6 MG/DL (40.0-60.0)
--- NOTE | 2017-07-02 08:40 | EKG ---
Date Performed: 07/01/2017 Time Performed: 12:26:00 PTAGE: 66 years EKG: Sinus rhythm Right bundle branch block Abnormal ECG PREVIOUS TRACING : 05/29/2017 06.18 No significant change from previous tracing noted. DOCTOR: Melvin Reese Interpretating Date/Time 07/02/2017 08:38:33
--- NOTE | 2017-07-02 13:36 | MA ---
cc: DORIAN NORMAN DATE: 07/02/2017 INDICATIONS: Angina pectoris, Class III angina, intermediate probability nuclear marker perfusion study. PROCEDURE PERFORMED: 1. Retrograde left heart catheterization with left ventriculography and selective coronary angiography. 2. Moderate sedation. ACCESS SITE: Right femoral artery. EQUIPMENT USED: A 5-[place] pigtail catheter, 5-[place] JL4 and AR modified coronary artery catheters. MEDICATIONS: Versed IV. Fentanyl IV. CONTRAST: Omnipaque 80 cc. COMPLICATIONS: None. MEDICATIONS Versed IV. Fentanyl IV. ESTIMATED BLOOD LOSS Less than 10 cc. METHOD OF HEMOSTASIS: Vascade closure. RESULTS A. HEMODYNAMICS: Heart rate 66 beats per minute. Left ventricular end-diastolic pressure 5 mmHg. Left ventricle 145/5. Aorta 145/88/114. B. LEFT VENTRICULOGRAPHY: Left ventricular ejection fraction 55%. Wall motion normal. No mitral regurgitation. C. CORONARY ANGIOGRAPHY: The left main coronary artery is patent. The left anterior descending coronary artery has 40% sequential stenosis in the mid-portion and 40% stenosis in the distal apical portion. The first diagonal artery has mild irregularities but is patent. The left circumflex artery is patent. OM1 patent. The right coronary artery is a large, dominant vessel which is patent. PDA patent. PLV patent. DIAGNOSES: 1. Moderate nonobstructive coronary artery disease with 40% sequential stenosis of the left anterior descending artery. 2. Overall preserved left ventricular systolic function. DISPOSITION: Mr. Medina will be monitored on telemetry after his procedure. He can be reassured about cardiac status. Recommend continued medical therapy including aggressive modification of his cardiac risk factors. I will see him back for followup in our office after discharge. Dorian Norman MD OQ/SSB /5:29 PM /1:23 PM
== END 2017-07-01 19:49 | disposition home or self-care (01) ==
LOC: HDIC 11:34 → HDOC 11:34
PROVIDERS: ATTEND Internal Medicine Interventional Cardiology
DX: I25.119 Atherosclerotic heart disease of native coronary artery with unspecified angina pectoris (principal); I10 Essential (primary) hypertension; I45.10 Unspecified right bundle-branch block; E11.9 Type 2 diabetes mellitus without complications; E78.5 Hyperlipidemia, unspecified; E66.9 Obesity, unspecified; Z68.41 Body mass index [BMI] 40.0-44.9, adult; R78.89 Finding of other specified substances, not normally found in blood; R53.83 Other fatigue; M25.519 Pain in unspecified shoulder; Z79.84 Long term (current) use of oral hypoglycemic drugs; Z79.82 Long term (current) use of aspirin; Z79.899 Other long term (current) drug therapy
CPT/HCPCS: 80048; 80061; 85025; 85610; 85730; 93005; 93458; C1760; C1769; C1893; G0269; J1644; J2250; J3010; Q9967